=== PATIENT | female | born 1995 | race Caucasian/White ===

== ENCOUNTER → 2019-05-16 | Outpatient (CLI) | payer BC ==
--- NOTE | 2019-05-19 13:07 | US ---
INDICATION: Left leg pain and swelling. DUPLEX ULTRASOUND, LEFT LOWER EXTREMITY VEINS: Multiple ultrasonic images were obtained utilizing 2-D real time, duplex Doppler spectral analysis and color flow imaging, as well as 2-D imaging, 05/16/19 - no comparisons. The common femoral, deep femoral, proximal, mid, and distal femoral, and popliteal deep veins, as well as the posterior tibial and peroneal veins were visualized. The proximal greater saphenous vein was also visualized. Evidence of extensive deep venous thrombosis is noted with somewhat dilated common femoral vein and femoral vein with echogenic material and lack of blood flow, compatible with completely obstructive deep venous thrombosis down to the level of the popliteal fossa. At this point, there are echogenic foci within the popliteal vein with some flow - partial DVT in the popliteal vein. Flow was noted relatively normally at the posterior tibial and peroneal veins. IMPRESSION: Fairly extensive deep venous thrombosis common femoral through popliteal veins. A report was left on Esthela Hutchison voicemail at 1625 hours on 05/16/19. [facility]
== END ==
LOC: FB.DI 15:20
PROVIDERS: ATTEND Nurse Practitioner
DX: M79.622 Pain in left upper arm (principal); M79.89 Other specified soft tissue disorders; I82.412 Acute embolism and thrombosis of left femoral vein; I82.432 Acute embolism and thrombosis of left popliteal vein
CPT/HCPCS: 93971-LT